=== PATIENT | female | born 1990 | race Caucasian/White ===

== ENCOUNTER 2016-05-09 19:52 | Emergency (ER) | payer MEDICAID ==
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
[2016-05-09] MEDS ORDERED: Prochlorperazine 5 mg/mL 2mL Vial IM STA (20:33)
[2016-05-09] MEDS ORDERED: Dexamethasone Sodium Phos 4 mg/mL Vial IM STA (20:34)
[2016-05-09 21:14] LABS: URINE BILIRUBIN NEGATIVE (NEGATIVE); URINE BLOOD NEGATIVE (NEGATIVE); URINE COLOR YELLOW; URINE GLUCOSE (UA) NEGATIVE (NEGATIVE); URINE KETONE NEGATIVE (NEGATIVE); URINE PH 6.5; URINE PROTEIN TRACE mg/dL (NEGATIVE); URINE UROBILINOGEN 0.2 E.U./dL (0.2 - 1.0)
[2016-05-09 21:15] LABS: URINE BACTERIA MODERATE /hpf (NONE SEEN); URINE EPITHELIAL CELLS FEW /lpf (FEW); URINE RBC NONE SEEN /hpf (0-5); URINE WBC NONE SEEN /hpf (0-5)
[2016-05-09] MEDS ORDERED: Dexamethasone Sodium Phos 10 mg/mL PF Vial ONE (21:16)
[2016-05-09] MEDS ORDERED: Prochlorperazine 5 mg/mL 2mL Vial ONE (21:17)
[2016-05-09 21:23] LABS: AMPHETAMINE URINE POSITIVE (NEGATIVE); BARBITURATES URINE NEGATIVE (NEGATIVE)
--- NOTE | 2016-05-10 09:24 | Diagnostic Imaging Report ---
Left rib 3 views Indication: Trauma Comparison: none Findings: No focal consolidation, pleural effusions or evidence of pneumothorax. There is a mildly displaced left fifth rib fracture. Heart size is normal. Impression: Mildly displaced left fifth rib fracture. No evidence of pneumothorax.
== END 2016-05-09 22:20 | disposition home or self-care (01) ==
LOC: ER 19:52
DX: S22.32XA Fracture of one rib, left side, initial encounter for closed fracture (principal); F17.200 Nicotine dependence, unspecified, uncomplicated; X58.XXXA Exposure to other specified factors, initial encounter; Y93.89 Activity, other specified; Y92.89 Other specified places as the place of occurrence of the external cause; Y99.8 Other external cause status
CPT/HCPCS: 99285; 96372 ×3; 71101; 80300; 81001; 81025; J1885; J0780